=== PATIENT | male | born 1965 | race Caucasian/White ===

== ENCOUNTER → 2020-05-19 | Outpatient (CLI) | payer OTHER, BC ==
[~2020-05-19] VITALS: Ht 177.8 cm; Wt 108.9 kg
[~2020-05-19] MED LIST: DARVOCET A5001 EAC1 PO; DIAZEPAM 10 MG10 M1 PO; HYDROCODON-ACE1 EAC5 PO; LISINOPRIL5 MG PO; LOPRESSOR50 PO; OXYCODONE HCL10 MG PO; OXYCONTIN CR 2020 MG PO; OXYCONTIN30 MG PO; PERCOCET 5-3251 EACH PO; PRILOSEC OTC20 MG PO; ROXICODONE15 M1 PO; SLOW FE142 MG PO; TRAMADOL 50 MG50 MG PO; VALIUM5 MG PO
[2020-05-19 12:58] VITALS: BP 140/74
--- NOTE | 2020-05-19 15:12 | NUR ---
IN FOR 1ST INJECTAFER INFUSION FOR IRON DEFICIENCY ANEMIA. STATED FEELING VERY TIRED AND WEAK. ADMISSION HISTORY AND ASSESSMENT COMPLETED. MEDICATION RECONCILED. DENIED ANY SYMPTOMS OF COVID OR INFECTION. TOLERATED INFUSION WITHOUT INCIDENT. POST BP GOOD. REMOVED IV AND DISMISSED IN STABLE CONDITION. TO RETURN NEXT SATURDAY FOR 2ND INFUSION.
== END ==
LOC: OPONC 12:31
PROVIDERS: ATTEND Family Medicine
DX: D50.9 Iron deficiency anemia, unspecified (principal); K90.9 Intestinal malabsorption, unspecified
CPT/HCPCS: 95000

== ENCOUNTER → 2020-05-26 | Outpatient (CLI) | payer OTHER, BC ==
[2020-05-26 13:15] VITALS: BP 142/83
[2020-05-26 13:35] VITALS: BP 155/74
--- NOTE | 2020-05-26 14:15 | NUR ---
IN FOR 2ND INJECTAFER INFUSION FOR IRON DEFICIENCY ANEMIA. PATIENT STATED HAD SOME NAUSEA/VOMITING AND DIARRHEA FOR A COUPLT OF DAYS AFTER LAST WEEKS DOSE. STATED FEELING WELL TODAY. DENIED FEVER/CHILLS, COUGH, SOB, TOLERATED INFUSION WITHOUT INCIDENT. OBSERVED FOR 30 MINUTES. POST BP GOOD. DISMISSED IN STABLE CONDITION.
== END ==
LOC: OPONC 12:42
PROVIDERS: ATTEND Family Medicine
DX: D50.9 Iron deficiency anemia, unspecified (principal); K90.9 Intestinal malabsorption, unspecified
CPT/HCPCS: 95000